=== PATIENT | male | born 1975 | race Caucasian/White ===

== ENCOUNTER 2017-04-13 13:51 | Emergency (ER) | payer OTHER ==
[~2017-04-13] VITALS: Ht 175.3 cm; Wt 87.7 kg
[2017-04-13 13:57] VITALS: BP 129/84
== END 2017-04-13 15:18 | disposition home or self-care (01) ==
LOC: ED 15:12
DX: J20.8 Acute bronchitis due to other specified organisms (principal); J00 Acute nasopharyngitis [common cold]; F12.10 Cannabis abuse, uncomplicated
CPT/HCPCS: 71020; 99284